=== PATIENT | male | born 1985 | race Caucasian/White ===

== ENCOUNTER 2016-06-05 12:08 | Day surgery (SDC) | payer OTHER ==
[~2016-06-05] VITALS: Ht 165.1 cm; Wt 67.0 kg
[2016-06-05] VITALS (7 sets, daily range): BP systolic 115–122; BP diastolic 63–89; PULSE 76–101; RESP 18–20; Ht 165.1 cm; Wt 67.0 kg
[2016-06-05 12:49] LABS: ADD SCAN DIFF NO
[2016-06-05 12:54] LABS: BASOPHIL # 0.1 10^3/ul (0.0-0.1); BASOPHILS % 1.1 % (0.0-2.0); EOSINOPHILS # 0.1 10^3/ul (0.0-0.5); EOSINOPHILS % 0.9 % (0.0-7.0); HEMATOCRIT 46.2 % (42.0-52.0); HEMOGLOBIN 16.3 g/dl (14.0-18.0); LYMPHOCYTES # 1.9 10^3/ul (0.8-2.9); LYMPHOCYTES % 25.6 % (15.0-51.0); MEAN CORPUSCULAR HEMOGLOBIN 30.5 pg (29.0-33.0); MEAN CORPUSCULAR HGB CONC 35.3 g/dl (32.0-37.0); MEAN CORPUSCULAR VOLUME 86.5 fl (82.0-101.0); MEAN PLATELET VOLUME 11.1 fl (7.4-10.4); MONOCYTE # 0.5 10^3/ul (0.3-0.9); MONOCYTES % 6.7 % (0.0-11.0); NEUTROPHILS % 65.4 % (39.0-77.0); PLATELET COUNT 197 10^3/UL (140-415); RED BLOOD COUNT 5.34 10^6/ul (4.70-6.10); RED CELL DISTRIBUTION WIDTH 11.8 % (11.5-14.5); WHITE BLOOD COUNT 7.6 10^3/ul (4.8-10.8)
[2016-06-05 13:01] LABS: INR 1.01; PROTIME 13.3 Sec (12.2-14.2)
[2016-06-05 13:02] LABS: PARTIAL THROMBOPLASTIN TIME 27.4 Sec (25.0-35.0)
[2016-06-05 13:17] LABS: CALCIUM 9.3 mg/dl (8.4-10.2); CREATININE 0.77 mg/dl (0.61-1.24); POTASSIUM 4.1 mmol/L (3.5-5.1)
[2016-06-05] MEDS ORDERED: CEFAZOLIN 2 GM/50 ML (PMX) 50 ML IVPB ONE (15:30)
[2016-06-05] MEDS ORDERED: SOD CHLORIDE 0.9% 1,000 ML IV SCH (16:00)
[2016-06-05] MEDS ORDERED: BUPIVACAINE 0.25% (MPF) 10 ML 10 ML VIAL ONE (16:51)
[2016-06-05] MEDS ORDERED: morphine (1 MG/ML) 10ML SYRINGE IV PRN ×2 (17:00)
[2016-06-05] MEDS ORDERED: ONDANSETRON 4 MG INJ IV PRN (17:00)
[2016-06-05] MEDS ORDERED: FENTAnyl 50 MCG/ML VIAL IV PRN ×2 (17:00)
[2016-06-05] MEDS ORDERED: MEPERIDINE 25 MG INJ IV PRN (17:00)
[2016-06-05] MEDS ORDERED: MIDAZOLAM 1 MG/ML 2 ML INJ IV PRN (17:00)
[2016-06-05] MEDS ORDERED: DIPHENHYDRAMINE 50 MG INJ IV PRN (17:00)
[2016-06-05] MEDS ORDERED: METOCLOPRAMIDE 10 MG INJ IV PRN (17:00)
[2016-06-05] MEDS ORDERED: LIDOCAINE 2% (SDV) 5 ML INJ ONE (17:03)
[2016-06-05] MEDS ORDERED: PROPOFOL 20 ML ONE (17:03)
[2016-06-05] MEDS ORDERED: CEFAZOLIN 1 GM INJ ONE (17:06)
[2016-06-05] MEDS ORDERED: BUPIVACAINE 0.25% (MPF) 10 ML 10 ML VIAL INJ ONE (17:26)
[2016-06-05] MEDS ORDERED: HYDROCODONE/APAP (5/325) TAB PO ONE (18:00)
--- NOTE | 2016-06-05 18:41 | OPR ---
DATE OF OPERATION: 06/05/2016 INDICATIONS: This is a 30-year-old male with a right forehead mass. He requests surgical excision. Risks, alternatives, benefits and personnel discussed and patient expressed understanding and cons ents to the operation. PREOPERATIVE DIAGNOSIS: Right forehead mass. POSTOPERATIVE DIAGNOSIS: Right forehead mass. OPERATION PERFORMED: 1. Excision of right forehead mass of 3 cm size incision of 3 cm size mass. 2. Localized adjacent tissue transfer with the use of skin flaps. SURGEON: Olinda Royal MD SPECIMEN: Right forehead mass. COMPLICATIONS: None. ANESTHESIA: General. DESCRIPTION OF PROCEDURE: The patient was taken to the OR, prepped and draped in the usual sterile fashion. Surgical timeout was performed. IV antibiotics were given. Transverse incision is made o gonsalo the right forehead mass with a 15 blade. Dissection cautery was carried down to the mass and ci rcumferentially excised. There was good hemostasis. Due to tissue defect, localized adjacent tissu e transfer with the use of skin flaps was performed. A multilayer closure with interrupted 3-0 Vicr yl and running 4-0 Monocryl. Local anesthesia was injected. Dry dressings were applied. Dictated By: OLINDA LESTER/CAROLYNN Conf#: [id number] DID#: [id number]
== END 2016-06-05 18:56 | disposition home or self-care (01) ==
LOC: SDS 12:08
PROVIDERS: ATTEND Surgery
DX: D17.0 Benign lipomatous neoplasm of skin and subcutaneous tissue of head, face and neck (principal)
CPT/HCPCS: 14040; 80048; 85025; 85610; 85730; 88307; J0690; J2175; J2405; J3010; Z7512; Z7610